=== PATIENT | female | born 2000 | race Hispanic/Latino ===

== ENCOUNTER 2024-06-02 21:05 | Emergency (ER) | payer OTHER, BC ==
[~2024-06-02] VITALS: Ht 152.4 cm; Wt 79.4 kg
[2024-06-02] MEDS: acetaMINOPHEN 500 MG TABLET PO ONE (22:32)
[2024-06-03 00:51] VITALS: BP 122/72; PULSE 76; RESP 18; O2SAT 98
[2024-06-03] MEDS ORDERED: CYCL10TA16 PO (01:11)
== END 2024-06-03 01:30 | disposition home or self-care (01) ==
LOC: EDH 21:05
DX: S16.1XXA Strain of muscle, fascia and tendon at neck level, initial encounter (principal); S40.022A Contusion of left upper arm, initial encounter; R51.9 Headache, unspecified; V89.2XXA Person injured in unspecified motor-vehicle accident, traffic, initial encounter; Y93.89 Activity, other specified; Y92.89 Other specified places as the place of occurrence of the external cause; Y99.8 Other external cause status
CPT/HCPCS: 70450; 72125; 73060; 81025